=== PATIENT | female | born 1990 ===

== ENCOUNTER 2017-10-31 07:15 | Emergency (ER) | payer OTHER ==
[2017-10-31 07:53] VITALS: TEMP 97.2
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
[2017-10-31 09:51] LABS: BASO # 0.02 K/mm3 (0.0-2.0); BASO % 0.2 % (0.0-3.0); GRAN # 5.64 (1.4-6.5); GRAN % 66.5 % (50.0-68.0); HEMOGLOBIN 13.4 g/dL (12.0-16.0); LYMPH # 2.5 (1.2-3.4); LYMPH % 29.1 % (22.0-35.0); MEAN CELL VOLUME 85.5 fl (80.0-105.0); MEAN CORPUSCULAR HEMOGLOBIN 28.2 pg (25.0-35.0); MEAN CORPUSCULAR HGB CONC 32.9 g/dl (31.0-37.0); MEAN PLATELET VOLUME 10.4 fl (7.0-11.0); MONO # 0.4 (0.1-0.6); MONO % 4.2 % (1.0-6.0); RBC 4.76 10^6/uL (3.5-6.1); RED CELL DISTRIBUTION WIDTH 13.9 % (11.5-14.5); WHITE BLOOD COUNT 8.5 10^3/ul (4.5-11.0)
[2017-10-31 10:03] LABS: ALB/GLOB RATIO 1.3 (1.1-1.8); ALBUMIN 4.2 g/dL (3.0-4.8); ALT/SGPT 37 U/L (7-56); AST/SGOT 31 U/L (14-36); BLOOD UREA NITROGEN 9 mg/dL (7-21); CALCIUM 9.1 mg/dL (8.4-10.5); GFR AFRICAN-AMERICAN > 60; GFR NON-AFRICAN AMERICAN > 60; LIPASE 74 U/L (23-300)
[2017-10-31] MEDS ORDERED: Iohexol 350 MG/100 ML VIAL ONE (10:40)
[2017-10-31 11:52] VITALS: RESP 18; O2SAT 98
[2017-10-31 11:54] VITALS: BP 110/79; PULSE 77
== END 2017-10-31 11:54 | disposition left against medical advice (07) ==
LOC: ED 07:15
DX: R51 Headache (principal); R10.9 Unspecified abdominal pain; Y08.89XA Assault by other specified means, initial encounter; Y92.89 Other specified places as the place of occurrence of the external cause
CPT/HCPCS: 80053; 83690; 85025; 99283; Q9967